=== PATIENT | female | born 1995 | race Caucasian/White ===

== ENCOUNTER 2017-03-31 08:17 | Emergency (ER) | payer MEDICAID ==
--- NOTE | 2017-03-31 08:22 | EDM.PDOC ---
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 Today pt c/o vaginal bleeding about as heavy as a period. In the last 3 weeks pt reports 3 positive home tests. Denies fever, chills, N/V, severe pain, passage of clots or tissue. Review of old records indicates that pt is ABO Type A, Positive. Onset: Unknown/Unsure Onset Date: 03/29/17 Duration: Getting Worse, Intermittent Location: Reports: Pelvis Quality: Reports: Other (cramps) Severity: Mild Improves with: Reports: None Worsens with: Reports: None Context: Denies: Activity, Exercise, Lifting, Sick Contact, Trauma Associated Symptoms: Reports: No Other Symptoms - Related Data Allergies Allergy/AdvReac Type Severity Reaction Status Date / Time Sulfa (Sulfonamide Allergy Cannot Verified 03/31/17 08:24 Antibiotics) Remember Home Meds: Home Meds Desogestrel-Ethinyl Estradiol [[place] 28 Day Tablet] 1 tab PO DAILY 02/11/16 [History] Past Medical History - Past Health History Medical/Surgical History: Denies Medical/Surgical History HEENT History: Reports: None, Impaired Vision Other HEENT History: wears glasses Cardiovascular History: Reports: None Respiratory History: Reports: Asthma (exercise induced) Gastrointestinal History: Reports: None Genitourinary History: Reports: STD (Genital herpes) 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: , 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) : 3 Para: 2 ( x2) Other OB/BYN History: Genital Herpes Musculoskeletal History: Reports: None Neurological History: Reports: None Psychiatric History: Reports: None Endocrine/Metabolic History: Reports: Obesity/BMI 30+ Hematologic History: Reports: None (Blood Type: A+) Immunologic History: Reports: None Oncologic (Cancer) History: Reports: None Dermatologic History: Reports: None - Infectious Disease History Infectious Disease History: Reports: Chicken Pox - Past Surgical History Female Surgical History: Reports: Section Social & Family History - Family History Family Medical History: Noncontributory HEENT: Reports: None Cardiac: Reports: 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) Other Cardiac Family History: Heart disease paternal grandparents. Respiratory: Reports: None GI: Reports: None : Reports: None OBGYN: Reports: None Musculoskeletal: Reports: None Neurological: Reports: 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) Other Neurological Family History: Stroke in father Psychiatric: Reports: None Endocrine/Metabolic: Reports: None Hematologic: Reports: None Immunologic: Reports: None Dermatologic: Reports: None Oncologic: Reports: None - Tobacco Use Smoking Status *Q: Current Every Day Smoker Years of Tobacco use: 2 Packs/Tins Daily: 1 Second Hand Smoke Exposure: No - Caffeine Use Caffeine Use: Reports: Coffee, Soda - Alcohol Use Days Per Week of Alcohol Use: 0 - Recreational Drug Use Recreational Drug Use: No - Sexual History Sexual History: Reports: Sexually Active - Living Situation & Occupation Living situation: Reports: with Family Occupation: Employed ED ROS GENERAL - Review of Systems Review Of Systems: ROS reveals no pertinent complaints other than HPI. ED EXAM - Physical Exam Exam: See Below Exam Limited By: No Limitations General Appearance: Alert, WD/WN, No Apparent Distress Head: Atraumatic, Normocephalic Neck: Normal Inspection Respiratory/Chest: No Respiratory Distress, Lungs Clear, Normal Breath Sounds, No Accessory Muscle Use, Chest Non-Tender Cardiovascular: Regular Rate, Rhythm, No Edema GI/Abdominal: Normal Bowel Sounds, Soft, No Organomegaly, No Distention, No Abnormal Bruit, No Mass, Pelvis Stable, Tender (very mild low suprapubic tenderness). No: Guarding, Rigid, Rebound Rectal Exam: Deferred (Female) Exam: Deferred for Placenta Previa (unknown LMP, no prior care, pelvic exam deferred until US obtained) Back Exam: Normal Inspection, Full Range of Motion. No: CVA Tenderness (L), CVA Tenderness (R) Extremities: Normal Inspection, Normal Range of Motion, Non-Tender, No Pedal Edema, Normal Capillary Refill Neurological: Alert, Oriented, CN II-XII Intact, Normal Cognition, Normal Gait, No Motor/Sensory Deficits Psychiatric: Normal Affect, Normal Mood Skin Exam: Warm, Dry, Intact, Normal Color, No Rash Course - Vital Signs Last Recorded V/S: Last Vital Signs Temp 36.6 C 03/31/17 10:34 Pulse 82 03/31/17 10:34 Resp 16 03/31/17 10:34 BP 106/65 03/31/17 10:34 Pulse Ox 99 03/31/17 10:34 - Orders/Labs/Meds Orders: Active Orders 24 hr Category Date Time Status OB 1st Tri Sgl 1st Gest [US] Stat Exams 03/31/17 09:27 Taken CHLAMYDIA TRACHOMATIS/GC AMPLF Routine Lab 03/31/17 08:30 Received CULTURE URINE [RM] Stat Lab 03/31/17 08:30 Received Labs: Laboratory Tests 03/31/17 03/31/17 03/31/17 Range/Units 08:30 08:30 08:36 WBC 7.9 (5.0-10.0) 10^3/uL RBC 4.42 (4.2-5.4) 10^6/uL Hgb 13.1 (12.0-16.0) g/dL Hct 39.4 (37.0-47.0) % MCV 89.1 (80-100) fL MCH 29.6 (27.0-34.0) pg MCHC 33.2 (33.0-35.0) g/dL Plt Count 286 (150-450) 10^3/uL Neut % (Auto) 55.2 (42.2-75.2) % Lymph % (Auto) 31.4 (20.5-50.1) % [place] % (Auto) 9.4 H (2-8) % Eos % (Auto) 3.2 H (1.0-3.0) % Baso % (Auto) 0.8 (0.0-1.0) % HCG, Quant (0-25) mIU/ml Beta HCG, Quant mIU/ml Urine Color Red (YELLOW) Urine Appearance Turbid (CLEAR) Urine pH 6.0 (5.0-9.0) Ur Specific [place] 1.020 (1.005-1.030) Urine Protein >=300 H (NEGATIVE) Urine Glucose (UA) Negative (NEGATIVE) Urine Ketones 15 H (NEGATIVE) Urine Occult Blood Large H (NEGATIVE) Urine Nitrite Positive H (NEGATIVE) Urine Bilirubin Moderate H (NEGATIVE) Urine Urobilinogen 1.0 (0.2-1.0) mg/dL Ur Leukocyte Esterase Large H (NEGATIVE) Urine RBC Packed H /HPF Urine WBC >100 H (0-5/HPF) /HPF Ur Epithelial Cells Rare /HPF Urine Opiates Screen Negative (NEGATIVE) Ur Oxycodone Screen Negative (NEGATIVE) Urine Methadone Screen Negative (NEGATIVE) Ur Barbiturates Screen Negative (NEGATIVE) U Tricyclic Antidepress Negative (NEGATIVE) Ur Phencyclidine Scrn Negative (NEGATIVE) Ur Amphetamine Screen Negative (NEGATIVE) U Methamphetamines Scrn Negative (NEGATIVE) Urine MDMA Screen Negative (NEGATIVE) U Benzodiazepines Scrn Negative (NEGATIVE) Urine Cocaine Screen Negative (NEGATIVE) U Marijuana (THC) Screen Negative (NEGATIVE) 03/31/17 Range/Units 08:36 WBC (5.0-10.0) 10^3/uL RBC (4.2-5.4) 10^6/uL Hgb (12.0-16.0) g/dL Hct (37.0-47.0) % MCV (80-100) fL MCH (27.0-34.0) pg MCHC (33.0-35.0) g/dL Plt Count (150-450) 10^3/uL Neut % (Auto) (42.2-75.2) % Lymph % (Auto) (20.5-50.1) % [place] % (Auto) (2-8) % Eos % (Auto) (1.0-3.0) % Baso % (Auto) (0.0-1.0) % HCG, Quant > 1370 H (0-25) mIU/ml Beta HCG, Quant 2206 mIU/ml Urine Color (YELLOW) Urine Appearance (CLEAR) Urine pH (5.0-9.0) Ur Specific [place] (1.005-1.030) Urine Protein (NEGATIVE) Urine Glucose (UA) (NEGATIVE) Urine Ketones (NEGATIVE) Urine Occult Blood (NEGATIVE) Urine Nitrite (NEGATIVE) Urine Bilirubin (NEGATIVE) Urine Urobilinogen (0.2-1.0) mg/dL Ur Leukocyte Esterase (NEGATIVE) Urine RBC /HPF Urine WBC (0-5/HPF) /HPF Ur Epithelial Cells /HPF Urine Opiates Screen (NEGATIVE) Ur Oxycodone Screen (NEGATIVE) Urine Methadone Screen (NEGATIVE) Ur Barbiturates Screen (NEGATIVE) U Tricyclic Antidepress (NEGATIVE) Ur Phencyclidine Scrn (NEGATIVE) Ur Amphetamine Screen (NEGATIVE) U Methamphetamines Scrn (NEGATIVE) Urine MDMA Screen (NEGATIVE) U Benzodiazepines Scrn (NEGATIVE) Urine Cocaine Screen (NEGATIVE) U Marijuana (THC) Screen (NEGATIVE) - Radiology Interpretation Free Text/Narrative:: OB US: no preg. seen, no acute pathology, see Rad. report. Departure - Departure Time of Disposition: 10:48 Disposition: Home, Self-Care 01 Condition: good Clinical Impression: Complete UTI (urinary tract infection) Qualifiers: Urinary tract infection type: site unspecified Hematuria presence: with hematuria Qualified Code(s): N39.0 - Urinary tract infection, site not specified ; R31.9 - Hematuria, unspecified - Discharge Information Instructions: Miscarriage, [id number], Urinary Tract Infection, Adult, Easy- to-Read Forms: ED Department Discharge Additional Instructions: Rx: Cephalexin 500mg Follow up in clinic in 1 to 2 weeks for recheck if vaginal bleeding stops and you have no pain. Return to ER if you develop heavy vaginal bleeding, severe pain, or a fever. - My Orders Last 24 Hours: My Active Orders 03/31/17 08:30 CHLAMYDIA TRACHOMATIS/GC AMPLF Routine CULTURE URINE [RM] Stat 03/31/17 09:27 OB 1st Tri Sgl 1st Gest [US] Stat - Assessment/Plan Last 24 Hours: My Active Orders 03/31/17 08:30 CHLAMYDIA TRACHOMATIS/GC AMPLF Routine CULTURE URINE [RM] Stat 03/31/17 09:27 OB 1st Tri Sgl 1st Gest [US] Stat
[2017-03-31 10:34] VITALS: BP 106/65
--- NOTE | 2017-03-31 11:18 | US ---
Clinical history: 21-year-old "gravid" 3 para 2 (unknown LMP) with vaginal bleeding. Interpretation: Midline uterus mildly enlarged with what appears to be a small collapsed "empty" nitin tral gestational sac and... subchorionic bleed, anteriorly. No sign of pole or heartbeat. No m yometrial fibroid mass lesions. No adnexal mass lesions or free fluid in the cul-de-sac (dominant, 13.3 mm cyst left ovary). CONCLUSION: Abnormal obstetrical sonogram. (See above). Serum hCG?
== END 2017-03-31 11:02 | disposition home or self-care (01) ==
LOC: DL.ED 08:17
DX: O03.9 Complete or unspecified spontaneous abortion without complication (principal); N39.0 Urinary tract infection, site not specified; J45.909 Unspecified asthma, uncomplicated; E66.9 Obesity, unspecified; F17.210 Nicotine dependence, cigarettes, uncomplicated; Z88.2 Allergy status to sulfonamides; Z79.899 Other long term (current) drug therapy
CPT/HCPCS: 36415; 76801; 80305; 81001; 84702; 85025; 87086; 87491; 87591; 99284

== ENCOUNTER 2017-07-11 08:39 | Emergency (ER) | payer MEDICAID ==
[2017-07-11 08:57] VITALS: BP 122/67
[2017-07-11] MEDS ORDERED: Penicillin G Benzathine/Procaine 600-600 1.2 Millunits/2 ML Syringe IM ONE (09:09)
--- NOTE | 2017-07-11 09:11 | EDM.PDOC ---
ED HPI GENERAL MEDICAL PROBLEM - General Chief Complaint: ENT Problem Stated Complaint: TONSILLES Time Seen by Provider: 07/11/17 09:08 Source of Information: Reports: Patient History Limitations: Reports: No Limitations - History of Present Illness INITIAL COMMENTS - FREE TEXT/NARRATIVE: 22 yo white female c/o 2 days of bodyaches and sore throat Onset Date: 07/09/17 Onset Time: 12:00 Duration: Day(s): Location: Reports: Other (throat) Quality: Reports: Ache Severity: Moderate Improves with: Reports: None Worsens with: Reports: None Context: Reports: Sick Contact (Pt. works at [employer]) Associated Symptoms: Reports: No Other Symptoms Throat Pain Score (Numeric/FACES): 6 - Related Data Allergies Allergy/AdvReac Type Severity Reaction Status Date / Time Sulfa (Sulfonamide Allergy Cannot Verified 07/11/17 08:47 Antibiotics) Remember Home Meds: Home Meds Amoxicillin 875 mg PO BID 07/11/17 [History] medroxyPROGESTERone [Depo-Provera Contraceptive] 150 mg IM .[id number] 07/11/17 [ History] Past Medical History - Past Health History Medical/Surgical History: Denies Medical/Surgical History HEENT History: Reports: Impaired Vision Other HEENT History: wears glasses Cardiovascular History: Reports: None Respiratory History: Reports: Asthma Gastrointestinal History: Reports: None 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: , 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) Other OB/BYN History: Genital Herpes Musculoskeletal History: Reports: None Neurological History: Reports: None Psychiatric History: Reports: None Endocrine/Metabolic History: Reports: Obesity/BMI 30+ Hematologic History: Reports: None Immunologic History: Reports: None Oncologic (Cancer) History: Reports: None Dermatologic History: Reports: None - Infectious Disease History Infectious Disease History: Reports: Chicken Pox - Past Surgical History Head Surgeries/Procedures: Reports: None Female Surgical History: Reports: Section Social & Family History - Family History Family Medical History: Noncontributory HEENT: Reports: None Cardiac: Reports: 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) Other Cardiac Family History: Heart disease paternal grandparents. Respiratory: Reports: None GI: Reports: None : Reports: None OBGYN: Reports: None Musculoskeletal: Reports: None Neurological: Reports: 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) Other Neurological Family History: Stroke in father Psychiatric: Reports: None Endocrine/Metabolic: Reports: None Hematologic: Reports: None Immunologic: Reports: None Dermatologic: Reports: None Oncologic: Reports: None - Tobacco Use Smoking Status *Q: Current Every Day Smoker Years of Tobacco use: 1 Packs/Tins Daily: 0.7 Second Hand Smoke Exposure: No - Caffeine Use Caffeine Use: Reports: Soda - Alcohol Use Days Per Week of Alcohol Use: 0 - Recreational Drug Use Recreational Drug Use: No - Sexual History Sexual History: Reports: Sexually Active - Living Situation & Occupation Living situation: Reports: with Family Occupation: Employed ED ROS ENT - Review of Systems Review Of Systems: See Below Constitutional: Reports: Fatigue HEENT: Reports: Throat Pain Respiratory: Reports: No Symptoms Cardiovascular: Reports: No Symptoms Endocrine: Reports: No Symptoms GI/Abdominal: Reports: No Symptoms : Reports: No Symptoms Musculoskeletal: Reports: Muscle Pain Skin: Reports: No Symptoms Neurological: Reports: No Symptoms Psychiatric: Reports: No Symptoms Hematologic/Lymphatic: Reports: No Symptoms Immunologic: Reports: No Symptoms ED EXAM, ENT - Physical Exam Exam: See Below Exam Limited By: No Limitations General Appearance: Alert, No Apparent Distress Eye Exam: Bilateral Eye: EOMI, PERRL Ears: Normal External Exam Nose: Normal Inspection, Normal Mucousa Mouth/Throat: Pharyngeal Erythema, Tonsillar Erythema, Tonsillar Exudates Head: Atraumatic, Normocephalic Neck: Supple, Lymphadenopathy (L), Lymphadenopathy (R) Respiratory/Chest: No Respiratory Distress, Lungs Clear Cardiovascular: Normal Peripheral Pulses, Regular Rate, Rhythm GI/Abdominal: Normal Bowel Sounds, Soft Back: Normal Inspection Extremities: Normal Inspection Neurological: Alert, Oriented, CN II-XII Intact Psychiatric: Normal Affect Skin: Warm, Dry, Intact Lymphatic: Adenopathy (bilat. cervical) Course - Vital Signs Last Recorded V/S: Last Vital Signs Temp 36.7 C 07/11/17 08:53 Pulse 96 07/11/17 08:53 Resp 18 07/11/17 08:53 BP 122/67 07/11/17 08:53 Pulse Ox 99 07/11/17 08:53 - Orders/Labs/Meds Orders: Active Orders 24 hr Category Date Time Status STREP SCRN A RAPID W CULT CONF [RM] Stat Lab 07/11/17 08:50 Received Meds: Medications Discontinued Medications Generic Name Dose Route Start Last Admin Trade Name Freq PRN Reason Stop Dose Admin Penicillin G Procaine/Benzathine 1.2 millunits 07/11/17 09:09 07/11/17 09:13 Bicillin C-R 600/600 IM 07/11/17 09:10 1.2 millunits ONETIME ONE Administration Departure - Departure Time of Disposition: 09:39 Disposition: Home, Self-Care 01 Condition: Good Clinical Impression: Tonsillitis - Discharge Information Forms: ED Department Discharge Additional Instructions: Rest Increase intake of Fluids ( Water / Juice) Take Tylenol Extra Strength 500mg every 4-6 hours for pain ( OTC) F/U w/ PCP - My Orders Last 24 Hours: My Active Orders 07/11/17 08:50 STREP SCRN A RAPID W CULT CONF [RM] Stat - Assessment/Plan Last 24 Hours: My Active Orders 07/11/17 08:50 STREP SCRN A RAPID W CULT CONF [RM] Stat
== END 2017-07-11 09:55 | disposition home or self-care (01) ==
LOC: DL.ED 08:39
DX: J03.90 Acute tonsillitis, unspecified (principal); H54.7 Unspecified visual loss; J45.909 Unspecified asthma, uncomplicated; E66.9 Obesity, unspecified; F17.210 Nicotine dependence, cigarettes, uncomplicated; Z88.2 Allergy status to sulfonamides; Z88.1 Allergy status to other antibiotic agents
CPT/HCPCS: 87430; 96372; 99283; J0558

== ENCOUNTER 2017-09-27 15:29 | Emergency (ER) | payer MEDICAID ==
[2017-09-27] MEDS ORDERED: Ibuprofen 800 MG Tab PO ONE (17:42)
[2017-09-27 17:43] VITALS: BP 126/67
--- NOTE | 2017-09-27 17:54 | EDM.PDOC ---
Scribed by Rocío Alberts 09/27/17 [id number] for Mitchell Briseno MD ED HPI GENERAL MEDICAL PROBLEM - General Chief Complaint: Lower Extremity Injury/Pain Stated Complaint: BACK,KNEE AND ANKLE PAINS, [id number] Time Seen by Provider: 09/27/17 17:05 Source of Information: Reports: Patient, RN, RN Notes Reviewed History Limitations: Reports: No Limitations - History of Present Illness INITIAL COMMENTS - FREE TEXT/NARRATIVE: Patient complains of left knee pain x2 days. Mild pain while sitting,but severe if standing or weight bearing on extended left knee Denies injury or activity or any other known cause. Denies swelling, redness or joint warmth. Location: Reports: Lower Extremity, Left Quality: Reports: Ache Severity: Moderate Improves with: Reports: None Worsens with: Reports: None Associated Symptoms: Reports: No Other Symptoms Left Knee Pain Score (Numeric/FACES): 5 - Related Data Allergies Allergy/AdvReac Type Severity Reaction Status Date / Time Sulfa (Sulfonamide Allergy Cannot Verified 07/11/17 08:47 Antibiotics) Remember Home Meds: Home Meds medroxyPROGESTERone [Depo-Provera Contraceptive] 150 mg IM .[id number] 07/11/17 [ History] Sertraline [Zoloft] 100 mg PO DAILY 09/27/17 [History] Past Medical History - Past Health History Medical/Surgical History: Denies Medical/Surgical History HEENT History: Reports: Impaired Vision Other HEENT History: wears glasses Cardiovascular History: Reports: None Respiratory History: Reports: Asthma Gastrointestinal History: Reports: None 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: , 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) Other OB/BYN History: Genital Herpes Musculoskeletal History: Reports: None Neurological History: Reports: None Psychiatric History: Reports: Depression Endocrine/Metabolic History: Reports: Obesity/BMI 30+ Hematologic History: Reports: None Immunologic History: Reports: None Oncologic (Cancer) History: Reports: None Dermatologic History: Reports: None - Infectious Disease History Infectious Disease History: Reports: Chicken Pox - Past Surgical History Head Surgeries/Procedures: Reports: None Female Surgical History: Reports: Section Social & Family History - Family History Family Medical History: Noncontributory HEENT: Reports: None Cardiac: Reports: 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) Other Cardiac Family History: Heart disease paternal grandparents. Respiratory: Reports: None GI: Reports: None : Reports: None OBGYN: Reports: None Musculoskeletal: Reports: None Neurological: Reports: 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) Other Neurological Family History: Stroke in father Psychiatric: Reports: None Endocrine/Metabolic: Reports: None Hematologic: Reports: None Immunologic: Reports: None Dermatologic: Reports: None Oncologic: Reports: None - Tobacco Use Smoking Status *Q: Current Every Day Smoker Years of Tobacco use: 1 Packs/Tins Daily: 0.5 Second Hand Smoke Exposure: No - Caffeine Use Caffeine Use: Reports: Energy Drinks, Soda - Alcohol Use Days Per Week of Alcohol Use: 0 - Recreational Drug Use Recreational Drug Use: No - Sexual History Sexual History: Reports: Sexually Active - Living Situation & Occupation Living situation: Reports: with Family Occupation: Employed Review of Systems - Review of Systems Review Of Systems: ROS reveals no pertinent complaints other than HPI. ED EXAM, GENERAL - Physical Exam Exam: See Below Exam Limited By: No Limitations General Appearance: Alert, WD/WN, No Apparent Distress Respiratory/Chest: No Respiratory Distress Back Exam: Normal Inspection, Full Range of Motion, NT Extremities: Other (left knee tender to palpation at anterior/medial joint. Novisible swelling, bruising, erythema or deformity. Skin intact.) Neurological: Alert, Oriented, CN II-XII Intact, Normal Cognition, Normal Gait, Normal Reflexes, No Motor/Sensory Deficits Psychiatric: Normal Affect, Normal Mood Skin Exam: Warm, Dry, Intact, Normal Color, No Rash Course - Vital Signs Last Recorded V/S: Last Vital Signs Temp 37.6 C 09/27/17 17:42 Pulse 85 09/27/17 17:42 Resp 18 09/27/17 17:42 BP 126/67 09/27/17 17:42 Pulse Ox 99 09/27/17 17:42 - Orders/Labs/Meds Orders: Active Orders 24 hr Category Date Time Status DME for Discharge [COMM] Routine Oth 09/27/17 17:41 Ordered Meds: Medications Discontinued Medications Generic Name Dose Route Start Last Admin Trade Name Freq PRN Reason Stop Dose Admin Ibuprofen 800 mg 09/27/17 17:42 09/27/17 17:52 Motrin PO 09/27/17 17:43 800 mg ONETIME ONE Administration - Radiology Interpretation Free Text/Narrative:: X-ray left knee: No fracture. See rad report. Departure - Departure Time of Disposition: 17:42 Disposition: Home, Self-Care 01 Condition: Good Clinical Impression: Knee pain, left Qualifiers: Chronicity: acute Qualified Code(s): M25.562 - Pain in left knee Injury of meniscus of left knee Qualifiers: Encounter type: initial encounter Qualified Code(s): S83.8X2A - Sprain of other specified parts of left knee, initial encounter - Discharge Information Instructions: Knee Pain Forms: ED Department Discharge Additional Instructions: RX: Ibuprofen 600mg. Rest, ice and elevate the left knee. Crutches as needed for partial weight bearing. Follow up in clinic in 5-7 days if not improved. - My Orders Last 24 Hours: My Active Orders 09/27/17 17:41 DME for Discharge [COMM] Routine - Assessment/Plan Last 24 Hours: My Active Orders 09/27/17 17:41 DME for Discharge [COMM] Routine I have read and agree with the documentation that has been completed regarding this visit. By signing this record, I attest that the documentation was completed in my physical presence and is an accurate record of the encounter.
== END 2017-09-27 18:00 | disposition home or self-care (01) ==
LOC: DL.ED 15:29
DX: S83.8X2A Sprain of other specified parts of left knee, initial encounter (principal); F17.210 Nicotine dependence, cigarettes, uncomplicated; Z88.2 Allergy status to sulfonamides; Z79.899 Other long term (current) drug therapy; X58.XXXA Exposure to other specified factors, initial encounter
CPT/HCPCS: 73562; 99283; A9270

== ENCOUNTER 2018-01-10 13:29 | Emergency (ER) | payer MEDICAID ==
[2018-01-10 14:06] VITALS: BP 117/72
--- NOTE | 2018-01-10 16:12 | EDM.PDOC ---
ED HPI GENERAL MEDICAL PROBLEM - General Chief Complaint: Abdominal Pain Stated Complaint: STOMACH PAIN [id number] Time Seen by Provider: 01/10/18 14:00 - History of Present Illness INITIAL COMMENTS - FREE TEXT/NARRATIVE: Yoly is a 22-year-old woman in to see me today for 2 problems. First, she has been having intermittent abdominal pain for the past 4-5 days. She states that she also has intermittent nausea and low appetite with this. Yoly has no history of abdominal issues, no history of gastric esophageal reflux disease. She does not think that she has any risk of STDs at this time. In problem today, she's been having chronic right shoulder pain for the past 2 months. 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 She also has a 2 and 4-year- old child at home and frequently is lifting them as well. She is having significant pain with her right shoulder with basically any movement. Middle Abdomen Pain Score (Numeric/FACES): 3 - Related Data Allergies Allergy/AdvReac Type Severity Reaction Status Date / Time Sulfa (Sulfonamide Allergy Cannot Verified 07/11/17 08:47 Antibiotics) Remember Home Meds: Home Meds medroxyPROGESTERone [Depo-Provera Contraceptive] 150 mg IM .[id number] 07/11/17 [ History] Sertraline [Zoloft] 100 mg PO DAILY 09/27/17 [History] Polyethylene Glycol 3350 [Gavilax] 34 gm PO DAILY #1 container 01/10/18 [Rx] Past Medical History - Past Health History Medical/Surgical History: Denies Medical/Surgical History HEENT History: Reports: Impaired Vision Other HEENT History: wears glasses Cardiovascular History: Reports: None Respiratory History: Reports: Asthma Gastrointestinal History: Reports: None Genitourinary History: Reports: STD 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: , 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) Other OB/BYN History: Genital Herpes Musculoskeletal History: Reports: None Neurological History: Reports: None Psychiatric History: Reports: Depression Endocrine/Metabolic History: Reports: Obesity/BMI 30+ Hematologic History: Reports: None Immunologic History: Reports: None Oncologic (Cancer) History: Reports: None Dermatologic History: Reports: None - Infectious Disease History Infectious Disease History: Reports: Chicken Pox - Past Surgical History Head Surgeries/Procedures: Reports: None Female Surgical History: Reports: Section Social & Family History - Family History Family Medical History: Noncontributory HEENT: Reports: None Cardiac: Reports: 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) Other Cardiac Family History: Heart disease paternal grandparents. Respiratory: Reports: None GI: Reports: None : Reports: None OBGYN: Reports: None Musculoskeletal: Reports: None Neurological: Reports: 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) Other Neurological Family History: Stroke in father Psychiatric: Reports: None Endocrine/Metabolic: Reports: None Hematologic: Reports: None Immunologic: Reports: None Dermatologic: Reports: None Oncologic: Reports: None - Tobacco Use Smoking Status *Q: Current Every Day Smoker Years of Tobacco use: 1 Packs/Tins Daily: 0.5 Second Hand Smoke Exposure: No - Caffeine Use Caffeine Use: Reports: Soda - Alcohol Use Days Per Week of Alcohol Use: 0 - Recreational Drug Use Recreational Drug Use: No - Sexual History Sexual History: Reports: Sexually Active - Living Situation & Occupation Living situation: Reports: with Family Occupation: Employed ED ROS GENERAL - Review of Systems Review Of Systems: ROS reveals no pertinent complaints other than HPI. ED EXAM, GI/ABD - Physical Exam Exam: See Below Text/Narrative:: Gen.: Yoly is a pleasant 22-year-old woman in no acute distress Right shoulder: She does have significant pain with resisted external rotation, not as much with internal rotation. Significant pain with resisted abduction and adduction at both 30 and 90 Abdomen: Soft, diffusely tender to palpation, hypoactive bowel sounds heard in all 4 quadrants Flat and upright abdominal x-ray shows a large amount of stool in the ascending , transverse, and descending colon. Course - Vital Signs Last Recorded V/S: Last Vital Signs Temp 37.5 C 01/10/18 13:43 Pulse 91 01/10/18 13:43 Resp 16 01/10/18 13:43 BP 117/72 01/10/18 13:43 Pulse Ox 100 01/10/18 13:43 - Orders/Labs/Meds Labs: Laboratory Tests 01/10/18 Range/Units 14:24 Urine HCG, Qual Negative Departure - Departure Time of Disposition: 16:08 Disposition: Home, Self-Care 01 Condition: Good Clinical Impression: Rotator cuff dysfunction Qualifiers: Laterality: right Qualified Code(s): M67.911 - Unspecified disorder of synovium and tendon, right shoulder Constipation Qualifiers: Constipation type: unspecified constipation type Qualified Code(s): K59.00 - Constipation, unspecified - Discharge Information Prescriptions: Polyethylene Glycol 3350 [Gavilax] 34 gm PO DAILY #1 container Instructions: Constipation, Adult, [id number] Referrals: Nahomy Jo MD [Primary Care Provider] - 1 Week Forms: ED Department Discharge Additional Instructions: Follow up with a family medicine or internal medicine physician sometime this next week, for evaluation of your shoulder. As we discussed, I am concerned you may have a rotator cuff injury Stick with fluids only for the next few days until you are better from your constipation
== END 2018-01-10 16:08 | disposition home or self-care (01) ==
LOC: DL.ED 13:29
DX: M67.911 Unspecified disorder of synovium and tendon, right shoulder (principal); K59.00 Constipation, unspecified; F17.210 Nicotine dependence, cigarettes, uncomplicated; Z88.2 Allergy status to sulfonamides; Z79.899 Other long term (current) drug therapy
CPT/HCPCS: 74019; 81025; 99284

== ENCOUNTER 2018-06-27 16:58 | Emergency (ER) | payer MEDICAID ==
[2018-06-27 17:38] VITALS: BP 126/91
--- NOTE | 2018-06-27 18:09 | EDM.PDOC ---
Scribed by Rocío Alberts 06/27/18 1806 for Mitchell Briseno MD ED HPI GENERAL MEDICAL PROBLEM - General Chief Complaint: ENT Problem Stated Complaint: cold [id number] Time Seen by Provider: 06/27/18 17:45 Source of Information: Reports: Patient, RN, RN Notes Reviewed History Limitations: Reports: No Limitations - History of Present Illness INITIAL COMMENTS - FREE TEXT/NARRATIVE: Patient presents to ER with the complaint of a floppy thing in the back of her throat. She has never seen it before. It has been there for 3 weeks. Onset: Gradual Location: Reports: Other (throat) Severity: Mild - Related Data Allergies Allergy/AdvReac Type Severity Reaction Status Date / Time Sulfa (Sulfonamide Allergy Cannot Verified 06/27/18 17:38 Antibiotics) Remember Home Meds: Home Meds . 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 History: Genital Herpes Musculoskeletal History: Reports: None Neurological History: Reports: None Psychiatric History: Reports: Depression Endocrine/Metabolic History: Reports: Obesity/BMI 30+ Hematologic History: Reports: None Immunologic History: Reports: None Oncologic (Cancer) History: Reports: None Dermatologic History: Reports: None - Infectious Disease History Infectious Disease History: Reports: Chicken Pox - Past Surgical History Head Surgeries/Procedures: Reports: None Female Surgical History: Reports: Section Social & Family History - Family History Family Medical History: Noncontributory HEENT: Reports: None Cardiac: Reports: 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) Other Cardiac Family History: Heart disease paternal grandparents. Respiratory: Reports: None GI: Reports: None : Reports: None OBGYN: Reports: None Musculoskeletal: Reports: None Neurological: Reports: 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) Other Neurological Family History: Stroke in father Psychiatric: Reports: None Endocrine/Metabolic: Reports: None Hematologic: Reports: None Immunologic: Reports: None Dermatologic: Reports: None Oncologic: Reports: None - Tobacco Use Smoking Status *Q: Current Every Day Smoker Years of Tobacco use: 1 Packs/Tins Daily: 0.5 Second Hand Smoke Exposure: Yes - Caffeine Use Caffeine Use: Reports: Soda - Recreational Drug Use Recreational Drug Use: No - Sexual History Sexual History: Reports: Sexually Active - Living Situation & Occupation Living situation: Reports: with Family Occupation: Employed ED ROS ENT - Review of Systems Review Of Systems: ROS reveals no pertinent complaints other than HPI. ED EXAM, ENT - Physical Exam Exam: See Below Exam Limited By: No Limitations General Appearance: Alert, WD/WN, No Apparent Distress Eye Exam: Bilateral Eye: Normal Inspection Ears: Normal External Exam, Normal Canal, Hearing Grossly Normal, Normal TMs Nose: Other (boggy nasal mucosa with clear drainage. ) Mouth/Throat: Normal Gums, Normal Lips, Normal Teeth, Pharyngeal Erythema (mild and streaks), Other (clear post nasal drip. ). No: Peritonsillar Mass, Throat Pain, Throat Swelling, Tongue Swelling, Tonsillar Erythema, Tonsillar Exudates, Tonsillar Swelling, Uvular Deviation, Uvular Edema Neck: Normal Inspection, Supple, Non-Tender, Full Range of Motion Respiratory/Chest: No Respiratory Distress Neurological: Alert, Oriented, No Motor/Sensory Deficits Psychiatric: Normal Mood Skin: Warm, Dry, Intact, Normal Color, No Rash Course - Vital Signs Last Recorded V/S: Last Vital Signs Temp 37.1 C 06/27/18 17:35 Pulse 83 06/27/18 17:35 Resp 18 06/27/18 17:35 BP 126/91 H 06/27/18 17:35 Pulse Ox 100 06/27/18 17:35 Departure - Departure Time of Disposition: 18:02 Disposition: Home, Self-Care 01 Condition: Good Clinical Impression: Post-nasal drip - Discharge Information Instructions: Postnasal Drip, Globus Pharyngeus Forms: ED Department Discharge Additional Instructions: Use prescription or over the counter Zyrtec (Cetirizine) 10mg: Take one tablet every day for 7 to 10 days. Saltwater gargles several times a day. Follow up in clinic if not improved in 7 to 10 days. I have read and agree with the documentation that has been completed regarding this visit. By signing this record, I attest that the documentation was completed in my physical presence and is an accurate record of the encounter.
== END 2018-06-27 18:10 | disposition home or self-care (01) ==
LOC: DL.ED 16:58
DX: R09.82 Postnasal drip (principal); F32.9 Major depressive disorder, single episode, unspecified; F17.210 Nicotine dependence, cigarettes, uncomplicated; J45.909 Unspecified asthma, uncomplicated; Z88.2 Allergy status to sulfonamides
CPT/HCPCS: 99283

== ENCOUNTER 2019-03-29 09:16 | Emergency (ER) | payer MEDICAID ==
[2019-03-29 09:23] VITALS: BP 126/80
--- NOTE | 2019-03-29 09:34 | EDM.PDOC ---
ED HPI GENERAL MEDICAL PROBLEM - General Chief Complaint: ENT Problem Stated Complaint: TONSILITIS? [id number] Time Seen by Provider: 03/29/19 09:25 Source of Information: Reports: Patient, Old Records, RN, RN Notes Reviewed History Limitations: Reports: No Limitations - History of Present Illness INITIAL COMMENTS - FREE TEXT/NARRATIVE: Pt presents with c/o onset of sore throat yesterday. Pt states her tonsils are swollen. She states that she gets tonsillitis several time every year. Denies fever, cough, N/V, abdominal pain, headache, or rash. Onset: Gradual Onset Date: 03/28/19 Duration: Constant Location: Reports: Other (Throat) Quality: Reports: Same as Previous Episode Severity: Moderate Improves with: Reports: None Worsens with: Reports: None Context: Denies: Sick Contact Associated Symptoms: Reports: No Other Symptoms Throat Pain Score (Numeric/FACES): 4 - Related Data Allergies Allergy/AdvReac Type Severity Reaction Status Date / Time Sulfa (Sulfonamide Allergy Cannot Verified 03/29/19 09:20 Antibiotics) Remember Home Meds: Home Meds Sertraline [Zoloft] 100 mg PO DAILY 03/29/19 [History] Past Medical History - Past Health History Medical/Surgical History: Denies Medical/Surgical History HEENT History: Reports: Impaired Vision Other HEENT History: wears glasses Cardiovascular History: Reports: None Respiratory History: Reports: Asthma Gastrointestinal History: Reports: None Genitourinary History: Reports: STD 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: , 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 , 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) 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 Musculoskeletal History: Reports: None Neurological History: Reports: None Psychiatric History: Reports: Depression Endocrine/Metabolic History: Reports: Obesity/BMI 30+ Hematologic History: Reports: None Immunologic History: Reports: None Oncologic (Cancer) History: Reports: None Dermatologic History: Reports: None - Infectious Disease History Infectious Disease History: Reports: Chicken Pox - Past Surgical History Head Surgeries/Procedures: Reports: None Female Surgical History: Reports: Section Social & Family History - Family History Family Medical History: Noncontributory HEENT: Reports: None Cardiac: Reports: 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) Other Cardiac Family History: Heart disease paternal grandparents. Respiratory: Reports: None GI: Reports: None : Reports: None OBGYN: Reports: None Musculoskeletal: Reports: None Neurological: Reports: 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) Other Neurological Family History: Stroke in father Psychiatric: Reports: None Endocrine/Metabolic: Reports: None Hematologic: Reports: None Immunologic: Reports: None Dermatologic: Reports: None Oncologic: Reports: None - Tobacco Use Smoking Status *Q: Current Every Day Smoker Tobacco Use Within Last Twelve Months: Cigarettes Years of Tobacco use: 2 Packs/Tins Daily: 1 - Caffeine Use Caffeine Use: Reports: Soda - Recreational Drug Use Recreational Drug Use: No - Sexual History Sexual History: Reports: Sexually Active - Living Situation & Occupation Living situation: Reports: with Family Occupation: Employed ED ROS ENT - Review of Systems Review Of Systems: ROS reveals no pertinent complaints other than HPI. ED EXAM, ENT - Physical Exam Exam: See Below Exam Limited By: No Limitations General Appearance: Alert, WD/WN, No Apparent Distress, Obese Eye Exam: Bilateral Eye: Normal Inspection Ears: Normal External Exam, Normal Canal, Hearing Grossly Normal, Normal TMs Nose: Normal Inspection, Normal Mucousa, No Blood Mouth/Throat: Normal Gums, Normal Lips, Normal Teeth, Pharyngeal Erythema, Throat Pain, Tonsillar Erythema, Tonsillar Exudates, Tonsillar Swelling. No: Peritonsillar Mass, Throat Swelling, Trismus, Uvular Deviation, Uvular Edema Head: Atraumatic, Normocephalic Neck: Full Range of Motion, Lymphadenopathy (L), Lymphadenopathy (R) Respiratory/Chest: No Respiratory Distress, Lungs Clear, Normal Breath Sounds, No Accessory Muscle Use, Chest Non-Tender Cardiovascular: Regular Rate, Rhythm GI/Abdominal: Normal Bowel Sounds, Soft, Non-Tender, No Organomegaly, No Distention, No Abnormal Bruit, No Mass Back: Normal Inspection Extremities: Normal Inspection Neurological: Alert, Oriented, No Motor/Sensory Deficits Psychiatric: Normal Mood Skin: Warm, Dry, Intact, Normal Color, No Rash Course - Vital Signs Last Recorded V/S: Last Vital Signs Temp 36.6 C 03/29/19 09:21 Pulse 90 03/29/19 09:21 Resp 16 03/29/19 09:21 BP 126/80 03/29/19 09:21 Pulse Ox 97 03/29/19 09:21 - Orders/Labs/Meds Labs: Rapid Strep: POSITIVE Departure - Departure Time of Disposition: 09:38 Disposition: Home, Self-Care 01 Condition: Good Clinical Impression: Strep pharyngitis, Strep tonsillitis - Discharge Information *PRESCRIPTION DRUG MONITORING PROGRAM REVIEWED*: No *COPY OF PRESCRIPTION DRUG MONITORING REPORT IN PATIENT JOSE: No Instructions: Strep Throat, [id number], Tonsillitis, [id number] Forms: ED Department Discharge Additional Instructions: Rx: Amoxicillin 500mg Rx: Prednisone 20mg Frequent saltwater gargles until improved. Follow up in clinic if not improving in 3 to 4 days.
== END 2019-03-29 09:42 | disposition home or self-care (01) ==
LOC: DL.ED 09:16
DX: J03.00 Acute streptococcal tonsillitis, unspecified (principal); F32.9 Major depressive disorder, single episode, unspecified; F17.210 Nicotine dependence, cigarettes, uncomplicated; J45.909 Unspecified asthma, uncomplicated; Z79.899 Other long term (current) drug therapy
CPT/HCPCS: 87430; 99283

== ENCOUNTER 2024-11-14 13:23 | Emergency (ER) | payer MEDICAID ==
[2024-11-14 13:35] VITALS: BP 125/74; PULSE 87
[2024-11-14] MEDS: Diphtheria,Pertussis(Acell),Tetanus Vaccine 0.5 ML Syringe IM ONE (13:38)
== END 2024-11-14 13:57 | disposition home or self-care (01) ==
LOC: DL.ED 13:23
DX: S61.111A Laceration without foreign body of right thumb with damage to nail, initial encounter (principal); S61.312A Laceration without foreign body of right middle finger with damage to nail, initial encounter; S61.314A Laceration without foreign body of right ring finger with damage to nail, initial encounter; Z23 Encounter for immunization; J45.909 Unspecified asthma, uncomplicated; E66.9 Obesity, unspecified; Z88.2 Allergy status to sulfonamides; Z79.899 Other long term (current) drug therapy; Z68.41 Body mass index [BMI] 40.0-44.9, adult; W26.8XXA Contact with other sharp object(s), not elsewhere classified, initial encounter
CPT/HCPCS: 12001; 90471; 90715; 99282; 99282-25